=== PATIENT | female | born 1950 | race Caucasian/White ===

== ENCOUNTER 2018-05-16 08:54 | Day surgery (SDC) ==
[2018-05-16] MEDS: TETRACAINE 0.5% UNIT-DOSE OP PRN ×2 (10:50→11:07)
[2018-05-16] MEDS: BETADINE OPTH PREP OP PRN ×2 (10:50→11:07)
[2018-05-16] MEDS: CYCLOGYL 2% OPTH OP PRN ×3 (10:51→11:04)
[2018-05-16] MEDS ORDERED: LIDOCAINE 1%/PHENYLEPHRINE 1.5% BSS (SURGERY) INTRAOCULA ONE (10:54)
[2018-05-16] MEDS ORDERED: BRIMONIDINE TARTRATE 0.2% OPTH SOL OP PRN (10:54)
[2018-05-16] MEDS ORDERED: BSS WITH EPINEPHRINE OP ONE (10:54)
[2018-05-16] MEDS ORDERED: DEX-MOXI-KETOR OPTH INJ 1/0.5/0.4 MG/ML IO ONE (10:54)
[2018-05-16] MEDS ORDERED: ZOFRAN 4 MG/2 ML IVP ONE (10:54)
[2018-05-16] MEDS ORDERED: LIDOCAINE 1% 20 ML MDV ID STA (10:54)
[2018-05-16 10:59] VITALS: TEMP 98.5
[2018-05-16] MEDS ORDERED: VERSED ONE (11:15)
[2018-05-16] MEDS ORDERED: SUBLIMAZE ONE (11:15)
[2018-05-16] MEDS ORDERED: ZOFRAN 4 MG/2 ML ONE (11:15)
[2018-05-18 11:19] VITALS: BP 123/56
== END 2018-05-16 12:40 | disposition home or self-care (01) ==
LOC: SURG 08:54
PROVIDERS: ATTEND Ophthalmology
DX: H25.812 Combined forms of age-related cataract, left eye (principal)